=== PATIENT | male | born 1975 | race Caucasian/White ===

== ENCOUNTER 2021-12-14 10:38 | Emergency (ER) | payer OTHER ==
[~2021-12-14] VITALS: Ht 170.2 cm; Wt 77.7 kg
[2021-12-14] MEDS ORDERED: IV NORMAL SALINE 1,000ML 1,000 ML IV SCH (11:15)
--- NOTE | 2021-12-14 11:15 | PHYS DOC ---
Past History Additional Past Medical Histor: chronic pain Past Surgical History: Other Additional Past Surgical Histo: left knee x2; abd hernia Alcohol Use: None General Adult EDM: Chief Complaint: OTHER COMPLAINTS HPI: HPI: Patient is a 46-year-old male who presents to the emergency department today for right-sided neck/shoulder pain. Patient reports that about 30 minutes prior to arrival patient started experiencing sweaty palms and noticed a sharp pain in his right side of his neck and shoulder with lightheadedness. Patient arrived to the ER and reports that his symptoms have resolved. States that on he woke up with chest pressure and lightheadedness and called 911. He was evaluated by EMS and an EKG was performed which they reported was normal so patient declined transport to the emergency department. Patient is not reporting any pain currently. He reports that when the pain occurred it was not worse with movement. He denies any lightheadedness currently, shortness of breath, nausea, vomiting. Review of Systems: Review of Systems: Respiratory: See HPI Cardiovascular: See HPI GI: See HPI Musculoskeletal: See HPI Neurologic: See HPI Allergies: Allergies: Allergies Coded Allergies Type Severity Reaction Last Updated Verified No Known Drug Allergies 12/14/21 No Physical Exam: PE: Constitutional: Well developed, well nourished, no acute distress, non-toxic appearance. [] HENT: Normocephalic, atraumatic, bilateral external ears normal, oropharynx moist, no oral exudates, nose normal. [] Eyes: PERRL, EOMI, conjunctiva normal, no discharge. [] Neck: Normal range of motion, no tenderness, supple, no stridor. [] Cardiovascular:Heart rate regular rhythm, no murmur [] Lungs & Thorax: Bilateral breath sounds clear to auscultation [] Abdomen: Bowel sounds normal, soft, no tenderness, no masses, no pulsatile masses. [] Skin: Warm, dry, no erythema, no rash. [] Back: No tenderness, normal range of motion Extremities: No tenderness, no cyanosis, no clubbing, ROM intact, no edema., No chest pain with palpation of right side of neck or shoulder [] Neurologic: Alert and oriented X 3, normal motor function, normal sensory function, no focal deficits noted. [] Psychologic: Affect normal, judgement normal, mood normal. [] Current Patient Data: Vital Signs: Vital Signs Date Time Temp Pulse Resp B/P (MAP) Pulse Ox O2 Delivery O2 Flow Rate FiO2 12/14/21 10:54 98.2 89 14 152/93 (112) 97 Room Air EKG: EKG: EKG performed by ER staff at 1138 shows sinus rhythm with a rate of 58, QTc is 4 4, no STEMI read by Dr. Corrales at 1148 [] Radiology/Procedures: Radiology/Procedures: []REASON: chest pain PROCEDURE: CHEST PA & LATERAL EXAM: Chest, 2 views. HISTORY: Chest pain. COMPARISON: None. FINDINGS: 2 views of the chest are obtained. There is no infiltrate, pleural effusion or pneumothorax. The heart is normal in size. IMPRESSION: No acute pulmonary finding. Electronically signed by: Erendira Zhang MD (12/14/2021 11:26 AM) [id number] DICTATED AND SIGNED BY: ERENDIRA ZHANG MD DATE: 12/14/21 1126 CC: EMERGENCY,DEPARTMENT; AMELIA VINES [employer] HRMS DEVELOPER; CYRIL CALERO PRECISION AGRICULTURE TECHNICIAN- ~ Heart Score: C/O Chest Pain: Yes HEART Score for Chest Pain: HEART Score for Chest Pain Response (Comments) Value History Moderately Suspicious 1 ECG Normal 0 Age < 45 0 Risk Factors No Risk Factors 0 Troponin < Normal Limit 0 Total 1 Risk Factors: Risk Factors: DM, Current or recent (<one month) smoker, HTN, HLP, family history of CAD, obesity. Risk Scores: Score 0 - 3: 2.5% MACE over next 6 weeks - Discharge Home Score 4 - 6: 20.3% MACE over next 6 weeks - Admit for Clinical Observation Score 7 - 10: 72.7% MACE over next 6 weeks - Early Invasive Strategies Course & Med Decision Making: Course & Med Decision Making Pertinent Labs and Imaging studies reviewed. (See chart for details) [] Patient resents to the emergency department for sweaty palms and right-sided neck and shoulder pain. It is possible the patient is experiencing atypical chest pain therefore, work-up in the ER consisted of blood work including troponin, EKG and chest x-ray. Patient is currently pain-free. Patient's lab work was unremarkable. Chest x-ray did not show any acute findings. Heart score is 1. Patient was kept for a 3-hour troponin and that was also negative. Patient continues to be pain-free. Patient advised to take Tylenol and ibuprofen for his pain and follow-up with his primary care provider. Powerhouse Attendant was attached to his discharge paperwork. I discussed with patient all findings and diagnostic testing as well as the need to follow-up with PCP for further evaluation and treatment or return to the ER if any new or worsening symptoms. Strict return precautions were also discussed at length. Patient voiced understanding and agreement with the plan. Patient is hemodynamically stable at the time of disposition. Dragon Disclaimer: Dragon Disclaimer: This electronic medical record was generated, in whole or in part, using a voice recognition dictation system. Departure Departure: Impression: Primary Impression: Atypical chest pain Disposition: HOME / SELF CARE / HOMELESS Condition: GOOD Referrals: CYRIL CALERO-HANNAH (PCP) BRANDON LYN MD Patient Instructions: Chest Pain (Nonspecific) Additional Instructions: You are seen in the emergency department for neck pain. We evaluated you for atypical presentation of cute coronary syndrome. At this time, does not appear that you are experiencing acute coronary syndrome. Take Tylenol and ibuprofen at home for your pain. Follow-up with your primary care provider tomorrow regarding your ER visit. I would like for you to follow-up with a branch officer and was attached to this discharge paperwork. Please contact the branch officer tomorrow to set up follow-up appointment. Increase your fluids and rest. If you return home and you develop chest pain, shortness of breath, high fevers, intractable nausea or vomiting, weakness please return to the emergency department immediately for reevaluation. AMELIA VINES [employer] HRMS DEVELOPER December 14, 2021 11:15
--- NOTE | 2021-12-14 11:29 | RAD ---
EXAM: Chest, 2 views. HISTORY: Chest pain. COMPARISON: None. FINDINGS: 2 views of the chest are obtained. There is no infiltrate, pleural effusion or pneumothorax . The heart is normal in size. IMPRESSION: No acute pulmonary finding. Electronically signed by: Erendira Kent MD (12/14/2021 11:26 AM) [id number]
[2021-12-14 12:18] LABS: BASO % 1 % (0-3); EOS # 0.1 x10^3/uL (0.0-0.7); EOS % 2 % (0-3); HEMATOCRIT 46.5 % (39.0-53.0); HEMOGLOBIN 15.7 g/dL (13.0-17.5); LYMPH # 1.7 x10^3/uL (1.0-4.8); LYMPH % 30 % (24-48); MEAN CORPUSCULAR HEMOGLOBIN 30 pg (25-35); MEAN CORPUSCULAR HGB CONC 34 g/dL (31-37); MEAN CORPUSCULAR VOLUME 90 fL (79-100); MONO # 0.4 x10^3/uL (0.0-1.1); MONO % 8 % (0-9); NEUT # 3.2 x10^3uL (1.8-7.7); NEUT % 60 % (31-73); PLATELET COUNT 223 x10^3/uL (140-400); RED BLOOD COUNT 5.17 x10^6/uL (4.30-5.70); RED CELL DISTRIBUTION WIDTH 13.3 % (11.5-14.5); WHITE BLOOD COUNT 5.4 x10^3/uL (4.0-11.0)
[2021-12-14 12:27] LABS: CALCIUM 9.2 mg/dL (8.5-10.1); CREATININE 0.9 mg/dL (0.7-1.3); GFR 91.3; POTASSIUM 4.2 mmol/L (3.5-5.1)
[2021-12-14 12:35] LABS: ALBUMIN 4.6 g/dL (3.4-5.0); ALBUMIN/GLOBULIN RATIO 1.8 (1.0-1.7); TOTAL BILIRUBIN 0.4 mg/dL (0.2-1.0); TOTAL PROTEIN 7.2 g/dL (6.4-8.2)
[2021-12-14 15:15] VITALS: BP 154/71
--- NOTE | 2021-12-14 23:29 | EKG ---
[address] [address] Test Date: 2021-12-14 Test Time: 11:38:37 Pat Name: PRICILLA TEMPLE Department: Room: Gender: M Floral Artist: : [id number] Requested By: AMELIA VINES Order Number: [id number] Reading MD: Harry Singh Measurements Intervals [place] Rate: 58 P: 49 [place]: 142 QRS: 11 QRSD: 98 T: 52 QT: 408 QTc: 404 Interpretive Statements SINUS RHYTHM NORMAL ECG RI6.02 No previous ECG available for comparison Electronically Signed On 12-16-2021 17:17:41 CDT by Harry Singh
== END 2021-12-14 15:20 | disposition home or self-care (01) ==
LOC: ER 10:38
DX: R07.89 Other chest pain (principal); M54.2 Cervicalgia; M25.511 Pain in right shoulder; G89.29 Other chronic pain
CPT/HCPCS: 36415; 71046; 80053; 84484; 85025; 93005; 96360; 96361; 99285; J7030